=== PATIENT | female | born 1955 | race African-American/Black ===

== ENCOUNTER 2022-02-19 16:30 | Emergency (ER) | payer MEDICARE, MEDICAID ==
[~2022-02-19] VITALS: Ht 167.6 cm; Wt 80.0 kg
[~2022-02-19 16:30] MED LIST: DILT30TA38 MT; IPRA3AMP9 NEB; LEVO-65 MT; P20 PO
[2022-02-19] MEDS ORDERED: IPRATROPIUM BROMIDE (0.02%) 0.5MG/2.5ML NEB HHN STA (21:01)
[2022-02-19] MEDS ORDERED: ACETAMINOPHEN 325MG TABLET PO STA (21:01)
[2022-02-19] MEDS ORDERED: ALBUTEROL (0.083%) 2.5MG/3ML NEB HHN STA (21:01)
[2022-02-19] MEDS ORDERED: PREDNISONE 20MG TABLET PO ONE (21:15)
[2022-02-19] MEDS ORDERED: AZITHROMYCIN 500MG/250ML 250 ML IV ONE (22:00)
[2022-02-19] MEDS ORDERED: CEFTRIAXONE 1 G PREMIX 50 ML IV ONE (22:00)
[2022-02-19 22:57] LABS: BASOPHILS % 0.5 % (0.0-2.0); EOSINOPHILS % 0.1 % (0.0-5.0); HEMATOCRIT. 36.2 % (36.0-48.0); HEMOGLOBIN. 11.7 g/dL (12.0-16.0); LYMPHOCYTES % 42.1 % (20.0-50.0); MEAN CORPUSCULAR HEMOGLOBIN 24.7 pg (28.0-32.0); MEAN CORPUSCULAR VOLUME 76.3 fL (81.0-99.0); MEAN PLATELET VOLUME 7.3 fl (7.4-10.4); MONOCYTES % 6.5 % (2.0-8.0); NEUTROPHILS % 50.8 % (40.0-76.0); PLATELET 276 x1000/uL (130-400); RED BLOOD CELL COUNT 4.75 mill/uL (4.2-5.4); RED CELL DISTRIBUTION WIDTH 16.1 % (11.6-14.6)
[2022-02-19 23:11] LABS: CHLORIDE 104 mEq/L (98-107)
[2022-02-20] MEDS ORDERED: ALBUTEROL (0.083%) 2.5MG/3ML NEB HHN STA (00:01)
[2022-02-20 00:44] VITALS: BP 125/69
[2022-02-20] MEDS ORDERED: ALBU6.7H3 INH (01:24)
[2022-02-20] MEDS ORDERED: AZIT250T12 MT (01:24)
[2022-02-20] MEDS ORDERED: P20 MT (01:24)
[2022-02-20] MEDS ORDERED: TAM75 MT (01:45)
[2022-02-20 01:50] LABS: CLARITY URINE CLOUDY (CLEAR); COLOR URINE YELLOW (YELLOW); KETONES URINE TRACE (NEGATIVE); LEUKOCYTE ESTERASE URINE NEGATIVE (NEGATIVE); NITRITE URINE NEGATIVE (NEGATIVE); OCCULT BLOOD URINE TRACE (NEGATIVE); PH URINE 5.5 (4.5-8.0); PROTEIN URINE 1+ (NEGATIVE); SPECIFIC GRAVITY URINE 1.027 (1.005-1.030)
== END 2022-02-20 01:48 | disposition home or self-care (01) ==
LOC: ER 16:30
DX: J18.9 Pneumonia, unspecified organism (principal); J45.909 Unspecified asthma, uncomplicated; E11.9 Type 2 diabetes mellitus without complications; I10 Essential (primary) hypertension; Z98.51 Tubal ligation status; F17.290 Nicotine dependence, other tobacco product, uncomplicated; Z79.899 Other long term (current) drug therapy; Z20.822 Contact with and (suspected) exposure to COVID-19
CPT/HCPCS: 36415; 71045; 80053; 81003; 83605; 84145; 84484; 85025; 87040; 87086; 87426; 87804; 93005; 94640; 96365; 99285; C9803; J0456; J0696; J7512; Z7610